=== PATIENT | female | born 1995 | race Caucasian/White ===

== ENCOUNTER 2018-05-03 01:43 | Emergency (ER) | payer MEDICAID ==
[~2018-05-03] VITALS: Ht 160 cm; Wt 67.6 kg
[2018-05-03 02:00] VITALS: Ht 160 cm; Wt 67.6 kg
[2018-05-03 03:30] VITALS: BP 112/63
== END 2018-05-03 03:30 | disposition home or self-care (01) ==
LOC: ED 01:43
DX: R09.1 Pleurisy (principal)
CPT/HCPCS: J1885; Q0092; Q0162

== ENCOUNTER 2018-06-16 13:46 | Emergency (ER) | payer MEDICAID ==
[~2018-06-16] VITALS: Ht 157.5 cm; Wt 69.4 kg
[2018-06-16 14:19] VITALS: BP 109/72; Ht 157.5 cm; Wt 69.4 kg
[2018-06-16 15:20] LABS: microscopic required? YES; urine erythrocyte NEGATIVE (NEGATIVE)
== END 2018-06-16 15:23 | disposition home or self-care (01) ==
LOC: ED 13:46
PROVIDERS: Emergency Medicine
DX: M54.9 Dorsalgia, unspecified (principal); R51 Headache; R68.83 Chills (without fever)

== ENCOUNTER 2018-06-18 21:07 | Emergency (ER) | payer MEDICAID ==
[~2018-06-18] VITALS: Ht 162.6 cm; Wt 69.5 kg
[2018-06-18 21:27] VITALS: Ht 162.6 cm; Wt 69.5 kg
[2018-06-19 00:19] VITALS: BP 104/61
== END 2018-06-19 00:20 | disposition home or self-care (01) ==
LOC: ED 21:07
DX: M54.5 Low back pain (principal)
CPT/HCPCS: J1885

== ENCOUNTER 2018-07-11 16:03 | Emergency (ER) | payer MEDICAID ==
[~2018-07-11] VITALS: Ht 162.6 cm; Wt 68.0 kg
[2018-07-11 16:14] VITALS: BP 106/64; Ht 162.6 cm; Wt 68.0 kg
== END 2018-07-11 18:15 | disposition home or self-care (01) ==
LOC: ED 16:03
DX: J34.89 Other specified disorders of nose and nasal sinuses (principal)

== ENCOUNTER 2018-11-29 08:01 | Emergency (ER) | payer MEDICAID ==
[~2018-11-29] VITALS: Ht 160 cm; Wt 71.7 kg
[2018-11-29 08:06] VITALS: BP 109/74; Ht 160 cm; Wt 71.7 kg
== END 2018-11-29 08:31 | disposition home or self-care (01) ==
LOC: ED 08:01
DX: H10.11 Acute atopic conjunctivitis, right eye (principal)

== ENCOUNTER 2019-03-24 | Emergency (ER) | payer MEDICAID ==
[~2019-03-24] VITALS: Ht 162.6 cm; Wt 68.0 kg
[2019-03-24 00:04] VITALS: Ht 162.6 cm; Wt 68.0 kg
[2019-03-24 00:58] VITALS: BP 112/63
== END 2019-03-24 00:58 | disposition home or self-care (01) ==
LOC: ED
DX: J02.9 Acute pharyngitis, unspecified (principal); Z98.890 Other specified postprocedural states